=== PATIENT | male | born 1975 | race African-American/Black ===

== ENCOUNTER 2018-10-30 20:32 | Emergency (ER) | payer SELFPAY ==
--- NOTE | 2018-10-31 00:42 | RADIOLOGY REPORT (SQ) ---
EXAM DESCRIPTION: XR KNEE 4 OR MORE VIEWS COMPLETED DATE/TME: 10/31/2018 00:09 CLINICAL HISTORY: 43 years, Male, twisting injury, fall COMPARISON: None. NUMBER OF VIEWS: Four TECHNIQUE: Four views of the right knee LIMITATIONS: None. FINDINGS: There is no acute fracture or dislocation. No large soft tissue swelling. No joint effusion. No radiopaque foreign body. IMPRESSION: No acute fracture or dislocation. copyright 2010 [employer]- All Rights Reserved
[2018-10-31 01:09] VITALS: BP 150/109
[2018-10-31] MEDS ORDERED: IBUPROFEN 600 MG TABLET PO ONE (01:17)
--- NOTE | 2018-10-31 01:17 | ER Document Report ---
HPI - HPI Patient complains to provider of: R knee injury Time Seen by Provider: 10/30/18 23:59 Pain Level: 5 Context: Pleasant 43-year-old male presents to the emergency department with chief complaint of her right knee injury sustained at work this past Friday. Patient states that happened while he was in the shop and known was there to fill out an accident and reports we have to wait till the end of the week to get seen for it. Patient states that he twisted and hurt himself and fell. Patient did not hear a pop. Patient cannot adequately bear weight and he has to walk on his toe. Patient denies any swelling of his entire leg, denies any tingling or numbness of his toes or foot, denies any color changes in his toes or foot. No other complaints Past Medical History - Social History Smoking Status: Never Smoker Family History: Reviewed & Not Pertinent Vertical Provider Document - CONSTITUTIONAL Notes: PHYSICAL EXAMINATION: Reviewed vital signs and charting by RN GENERAL: Alert, interacts well. No acute distress. HEAD: Normocephalic, atraumatic. EYES: Pupils equal and round. Extraocular movements intact. ENT: Oral mucosa moist, tongue midline. NECK: Full range of motion. Trachea midline. LUNGS: Clear to auscultation bilaterally, no wheezes, rales, or rhonchi. No respiratory distress. HEART: Regular rate and rhythm. No murmur ABDOMEN: soft, non-tender. No distention. Bowel sounds present EXTREMITIES: Moves all 4 extremities spontaneously. Edema of the right popliteal fossa with tenderness to palpation, patient can bend his knee but has reduced range of motion, no joint line tenderness to palpation in any of the bony landmarks, anterior drawer's test limited by pain and range of motion, no varus or valgus stress testing pain, swelling of the right lateral malleolus with no ecchymosis and no tenderness to palpation PSYCH: Normal affect, normal mood. SKIN: Warm, dry, normal turgor. No rashes or lesions noted. - INFECTION CONTROL TRAVEL OUTSIDE OF THE [place] IN LAST 30 DAYS: No Course - Re-evaluation Re-evalutation: 10/31/18 01:18 Well-appearing in no acute distress, patient does have some swelling of the popliteal fossa and of the lateral malleolus. 4 view x-ray of the right knee did not show any evidence of fracture or acute dislocation or joint effusion. Patient will be placed in a knee immobilizer and given crutches. Patient given strict return precautions and is stable for discharge. He was given referral to orthopedics. - Vital Signs Vital signs: Temp Pulse Resp BP Pulse Ox 98.2 F 89 18 151/111 H 98 10/30/18 21:05 10/30/18 21:05 10/30/18 21:05 10/30/18 21:05 10/30/18 21:05 Discharge - Discharge Clinical Impression: Right knee injury Qualifiers: Encounter type: initial encounter Qualified Code(s): S89.91XA - Unspecified injury of right lower leg, initial encounter Condition: Good Disposition: HOME, SELF-CARE Instructions: Suspected Internal Knee Injury ([facility]), Knee Immobilizing Splint ([facility]) Additional Instructions: You were seen for an injury to your right knee. You do have some swelling to the back part of your knee which slightly limited my testing of your ACL area nonetheless, I suspect you have an internal injury to your new and have given you referral to orthopedics. I have given you a knee immobilizer splint and you should use to help protect her knee. Please return to the emergency department if you lose feeling in your toes or foot, he get worsening swelling of your leg, you are unable to move your knee at all with maximum effort, he develop high fevers, or you have any other concerning symptoms. Forms: Return to Work Referrals: HAIR FAJARDO JR, [ACTIVE PROVISIONAL STAFF] - 11/02/18
== END 2018-10-31 02:01 | disposition home or self-care (01) ==
LOC: ER 20:32
DX: S89.91XA Unspecified injury of right lower leg, initial encounter (principal); X50.9XXA Other and unspecified overexertion or strenuous movements or postures, initial encounter; W19.XXXA Unspecified fall, initial encounter; Y99.0 Civilian activity done for income or pay
CPT/HCPCS: 73564; L1830; 99283

== ENCOUNTER 2018-11-19 09:09 | Inpatient (IN) | payer BC ==
[2018-11-19] MEDS ORDERED: ASPIRIN 81 MG TABLET, CHEWABLE PO ONE (09:26)
[2018-11-19 09:43] LABS: ABSOLUTE EOSINOPHILS # (AUTO) 0.5 10^3/uL (0.0-0.6); ABSOLUTE LYMPHOCYTES (AUTO) 1.6 10^3/uL (0.5-4.7); ABSOLUTE MONOCYTES (AUTO) 0.5 10^3/uL (0.1-1.4); ABSOLUTE NEUT (AUTO) 2.9 10^3/uL (1.7-8.2); BASOPHILS % (AUTO) 0.2 % (0-2); EOSINOPHILS % (AUTO) 8.2 % (0-6); HEMATOCRIT 45.3 % (37.9-51.0); MEAN CORPUSCULAR HEMOGLOBIN 32.1 pg (27.0-33.4); MEAN CORPUSCULAR HGB CONC 33.1 g/dL (32.0-36.0); MEAN CORPUSCULAR VOLUME 97 fl (80-97); MONOCYTES % (AUTO) 9.7 % (3-13); PLATELET COUNT 200 10^3/uL (150-450); RED BLOOD COUNT 4.68 10^6/uL (4.35-5.55); SEGMENTED NEUTROPHILS % (AUTO) 52.9 % (42-78); TOTAL CELLS COUNTED % (AUTO) 100 %; WHITE BLOOD COUNT 5.5 10^3/uL (4.0-10.5)
[2018-11-19] MEDS ORDERED: NORMAL SALINE 1000 ML 1,000 ML IV ONE (09:59)
[2018-11-19 10:03] LABS: ALBUMIN 4.9 g/dL (3.5-5.0); ALKALINE PHOSPHATASE 91 U/L (38-126); ANION GAP 14 (5-19); ASPARTATE AMINO TRANSFERASE 54 U/L (17-59); BILIRUBIN,DIRECT 0.1 mg/dL (0.0-0.4); BILIRUBIN,TOTAL 1.1 mg/dL (0.2-1.3); BLOOD UREA NITROGEN 9 mg/dL (7-20); CALCIUM 10.1 mg/dL (8.4-10.2); CARBON DIOXIDE 25 mmol/L (22-30); CHLORIDE 97 mmol/L (98-107); CREATINE KINASE 159 U/L (55-170); GLUCOSE 122 mg/dL (75-110); POTASSIUM 4.1 mmol/L (3.6-5.0); TOTAL PROTEIN 9.2 g/dL (6.3-8.2)
--- NOTE | 2018-11-19 10:07 | ER Document Report ---
ED General - General Chief Complaint: Chest Pain Stated Complaint: CHEST PAIN Time Seen by Provider: 11/19/18 09:40 Notes: 43-year-old male presents emergency department complaining of 3 days worth of sharp stabbing chest pain that starts in his epigastrium and radiates up it is associated with dyspnea on exertion and worsening with exertion. Patient states it also increases with cough but does not change with food. Patient admits to having had a cough for "a while" but thought this was just due to working outside. Patient also states that he had a bowel movement today which she thought might help but did not. Denies any history of heart attack in himself or his family, denies any cocaine use. TRAVEL OUTSIDE OF THE [place] IN LAST 30 DAYS: No - Related Data Allergies/Adverse Reactions: No Known Allergies Allergy (Unverified 09/25/14 21:20) Past Medical History - General Information source: Patient - Social History Smoking Status: Current Every Day Smoker Chew tobacco use (# tins/day): No Frequency of alcohol use: Heavy - Daily Drug Abuse: None Family History: Reviewed & Not Pertinent. denies: CAD, CVA Patient has suicidal ideation: No Patient has homicidal ideation: No Renal/ Medical History: Denies: Hx Peritoneal Dialysis Review of Systems - Review of Systems Constitutional: No symptoms reported Cardiovascular: See HPI Respiratory: See HPI Gastrointestinal: See HPI -: Yes All other systems reviewed and negative Physical Exam - Vital signs Vitals: Resp 25 H 11/19/18 09:26 Interpretation: Tachycardic - Notes Notes: GENERAL: Alert, interacts well. Appears uncomfortable. HEAD: Normocephalic, atraumatic EYES: Pupils equal, round and reactive to light, extraocular movements intact. ENT: Oral mucosa moist, tongue midline. NECK: Full range of motion, supple, trachea midline. LUNGS: Clear to auscultation bilaterally, no wheezes, rales or rhonchi, mildly tachypneic laying in bed. HEART: Tachycardic rate and rhythm, no murmurs, gallops, rubs. ABDOMEN: Soft, tender to palpation epigastrically, nondistended, bowel sounds present in all 4 quadrants. EXTREMITIES: Moves all 4 extremities spontaneously, no edema, radial and dorsalis pedis pulses 2/4 bilaterally. No cyanosis. NEUROLOGICAL: Alert and oriented x3, normal speech. PSYCH: Normal mood, normal affect. SKIN: Warm, Dry, normal turgor, no rashes or lesions noted. When he ambulates he becomes quite tachycardic into the 140s, tachypneic into the 30s and hypoxic to 88. Recovers quickly on sitting back down. Course - Re-evaluation Re-evalutation: 11/19/18 11:41 CBC unremarkable, coags slightly prolonged, CMP grossly unremarkable, troponin does have a slight bump at 0.024, CT angiogram of the chest shows large bi lateral distal right and distal left main pulmonary artery emboli extending into the segmental branches, heavy burden of clot, EKG has no evidence of right heart strain. Patient will be started on Xarelto with an initial dose of Lovenox to bridge the 4 hours it takes for Xarelto to be effective. Discussed with Dr. Corrigan who will admit the patient to his service. - Vital Signs Vital signs: Temp Pulse Resp BP Pulse Ox 98.1 F 23 H 160/121 H 99 11/19/18 09:45 11/19/18 11:01 11/19/18 11:01 11/19/18 11:01 - Laboratory Result Diagrams: 11/19/18 09:32 11/19/18 09:32 Laboratory results interpreted by me: 11/19/18 11/19/18 11/19/18 09:32 09:32 09:32 Eos % (Auto) 8.2 H APTT 36.0 H Sodium 135.6 L Chloride 97 L Glucose 122 H Total Protein 9.2 H - EKG Interpretation by Me Additional EKG results interpreted by me: 11/19/18 11:42 EKG shows sinus rhythm at a rate of 98, no ST segment elevations or depressions, no T wave inversions, normal axis, borderline QT interval per my interpretation. Critical Care Note - Critical Care Note Total time excluding time spent on procedures (mins): 35 Discharge - Discharge Clinical Impression: Bilateral pulmonary embolism Condition: Serious Disposition: ADMITTED INPATIENT Admitting Provider: Meenu (Hospitalist) Unit Admitted: [facility]
[2018-11-19 10:14] LABS: CREATINE KINASE MB 0.69 ng/mL (<4.55); TROPONIN I 0.024 ng/mL
--- NOTE | 2018-11-19 11:00 | RADIOLOGY REPORT (SQ) ---
EXAM DESCRIPTION: CTA CHEST COMPLETED DATE/TIME: 11/19/2018 10:35 am REASON FOR STUDY: hypoxia, tachycardia COMPARISON: None. TECHNIQUE: CT scan of the chest performed using helical scanning technique with dynamic intravenous contrast injection. Images reviewed with lung, soft tissue and bone windows. Reconstructed coronal and sagittal MPR images reviewed. Additional 3 dimensional post-processing performed to develop Maximal Intensity Projection images (OR P). All images stored on PACS. All CT scanners at this facility use dose modulation, iterative reconstruction, and/or weight based d osing when appropriate to reduce radiation dose to as low as reasonably achievable (ALARA). [facility]: Dose Right [facility]: CareDose [facility]: Dose Right [facility]: Teradose 4D [facility]: UReserv CONTRAST TYPE AND DOSE: contrast/concentration: Isovue 350.00 mg/ml; Total Contrast Delivered: 52.0 ml; Total Saline Delivered: 59.0 ml Contrast bolus optimized for the pulmonary arteries and thoracic aorta. RENAL FUNCTION: None required. The patient is less than 50 years old. RADIATION DOSE: CT Rad equipment meets quality standard of care and radiation dose reduction techniq ues were employed. CTDIvol: 9.9 - 21.7 mGy. DLP: 867 mGy-cm. . LIMITATIONS: None. FINDINGS: LUNGS AND PLEURA: No masses, infiltrates, or pneumothorax. No pleural effusions or pleura l calcifications. AORTA AND GREAT VESSELS: No thoracic aortic aneurysm or dissection HEART: No pericardial effusion. No significant coronary artery calcifications. PULMONARY ARTERIES: Large bilateral distal right and distal left main pulmonary artery emboli extendi ng into the segmental branches. Heavy burden of clot. Findings discussed with Dr. Pham, 1050 hour s 11/19/2018. HILAR AND MEDIASTINAL STRUCTURES: No identified masses or abnormal nodes. HARDWARE: None in the chest. UPPER ABDOMEN: No significant findings. Limited exam. THYROID AND OTHER SOFT TISSUES: No masses. No adenopathy. BONES: No acute or significant finding. 3D MIPS: Confirm above findings. OTHER: No other significant finding. IMPRESSION: Large bilateral distal right and distal left main pulmonary artery emboli extending into the segmental branches. Heavy burden of clot. Findings discussed with Dr. Pham, 1050 hours 2018. COMMENT: Pertinent findings on the imaging study reported as a CRITICAL RESULT to DARVIN Reeves t10:50 on 11/19/2018. Category of Critical Result: Heavy burden of acute clot in the pulmonary arteries. Quality ID # [id number]: Final reports with documentation of one or more dose reduction techniques (e.g., Au tomated exposure control, adjustment of the mA and/or kV according to patient size, use of iterative reconstruction technique) TECHNICAL DOCUMENTATION: JOB ID: [id number] [employer]- All Rights Reserved Reading location - IP/workstation name: [email or web address]
[2018-11-19 11:06] LABS: INTERNATIONAL RATION (INR) 1.16; PROTHROMBIN TIME 14.8 SEC (11.4-15.4)
[2018-11-19] MEDS ORDERED: ENOXAPARIN SODIUM INJ 80 MG/0.8 ML DISP.SYRIN SUBCUT ONE (11:33)
[2018-11-19] MEDS ORDERED: RIVAROXABAN 10 MG TABLET PO ONE (11:34)
[2018-11-19] MEDS ORDERED: PROMETHAZINE HCL 25 MG TABLET PO PRN (12:03)
[2018-11-19] MEDS ORDERED: ONDANSETRON HCL INJ/PF 4 MG/2 ML SDV IV PRN (12:03)
[2018-11-19] MEDS ORDERED: ACETAMINOPHEN 325 MG TABLET PO PRN (12:03)
[2018-11-19] MEDS ORDERED: LORAZEPAM INJ 2 MG/1 ML VIAL IV PRN (12:25)
[2018-11-19] MEDS ORDERED: MORPHINE SULFATE 10 MG/ML INJ IV PRN (12:25)
--- NOTE | 2018-11-19 12:25 | PDOC H&P ---
History of Present Illness Admission Date/PCP: 11/19/18 12:03 Patient complains of: Chest pains and shortness of breath History of Present Illness: JOURDAN DMUONT is a 43 year old male no past medical history came to the emergency room with complaints of chest pains for the last 3 days associated with shortness of breath. Shortness of breath worsening even by walking 10 feet. Work-up in the emergency room shows bilateral pulmonary embolisms and is tachycardic at rest. Getting short winded with minimal activity. Plan is to put him in IMCU and consultation with Dr. Pino as requested. To start him on Xarelto 15 mg p.o. twice daily after 3 weeks switch to 20 mg daily. pt agreed to stay here for further management. Past Medical History Cardiac Medical History: Reports: None Pulmonary Medical History: Reports: None EENT Medical History: Reports: None Neurological Medical History: Reports: None Endocrine Medical History: Reports: None Renal/ Medical History: Reports: None GI Medical History: Reports: None Musculoskeltal Medical History: Reports: None Skin Medical History: Reports: None Psychiatric Medical History: Reports: None Traumatic Medical History: Reports: None Infectious Medical History: Reports: None Past Surgical History Past Surgical History: Reports: None Social History Information Source: Patient Smoking Status: Current Every Day Smoker Frequency of Alcohol Use: Social Hx Recreational Drug Use: No Hx Prescription Drug Abuse: No - Advance Directive Resuscitation Status: Full Code Family History Family History: Reviewed & Not Pertinent. denies: CAD, CVA Parental Family History Reviewed: Yes - Mother with history of a gastric ulcer. Children Family History Reviewed: Yes Sibling(s) Family History Reviewed.: Yes Medication/Allergy Home Medications: Dicyclomine HCl [Bentyl 20 mg Tablet] 20 mg PO QID #14 tablet 09/25/14 Allergies/Adverse Reactions: No Known Allergies Allergy (Unverified 09/25/14 21:20) Review of Systems Constitutional: ABSENT: fever(s), headache(s), weakness Eyes: ABSENT: visual disturbances Ears: ABSENT: hearing changes Nose, Mouth, and Throat: ABSENT: sore throat Cardiovascular: PRESENT: chest pain, dyspnea on exertion, palpitations. ABSENT: orthropnea Respiratory: ABSENT: dyspnea, hemoptysis Gastrointestinal: ABSENT: abdominal pain, diarrhea, dysphagia, heartburn, hematemesis Genitourinary: ABSENT: dysuria, hematuria Integumentary: ABSENT: rash, wounds Neurological: ABSENT: abnormal gait, abnormal speech, confusion, dizziness, focal weakness, syncope Psychiatric: PRESENT: anxiety Physical Exam Vital Signs: Temp Pulse Resp BP Pulse Ox 98.1 F 23 H 160/121 H 99 11/19/18 09:45 11/19/18 11:01 11/19/18 11:01 11/19/18 11:01 Intake & Output 11/18/18 11/19/18 11/20/18 06:59 06:59 06:59 Intake Total 1000 Balance 1000 Weight 65 kg General appearance: PRESENT: mild distress Head exam: PRESENT: atraumatic Eye exam: PRESENT: PERRLA Mouth exam: PRESENT: moist, tongue midline Teeth exam: PRESENT: poor dentation Neck exam: ABSENT: carotid bruit, JVD, lymphadenopathy, thyromegaly Respiratory exam: PRESENT: decreased breath sounds Cardiovascular exam: PRESENT: RRR, tachycardia. ABSENT: diastolic murmur, rubs, systolic murmur Pulses: PRESENT: normal dorsalis pedis pul GI/Abdominal exam: PRESENT: normal bowel sounds, soft. ABSENT: distended, guarding, mass, organolmegaly, rebound, tenderness Rectal exam: PRESENT: deferred Extremities exam: PRESENT: full ROM. ABSENT: calf tenderness, clubbing, pedal edema Neurological exam: PRESENT: alert, awake, oriented to person, oriented to place, oriented to time, oriented to situation, CN II-XII grossly intact. ABSENT: motor sensory deficit Psychiatric exam: PRESENT: appropriate affect, normal mood. ABSENT: homicidal ideation, suicidal ideation Results Laboratory Results: 11/19/18 09:32 11/19/18 09:32 11/19/18 11/19/18 11/19/18 09:32 09:32 09:32 WBC 5.5 RBC 4.68 Hgb 15.0 Hct 45.3 MCV 97 MCH 32.1 MCHC 33.1 RDW 14.0 Plt Count 200 Seg Neutrophils % 52.9 Sodium 135.6 L Potassium 4.1 Chloride 97 L Carbon Dioxide 25 Anion Gap 14 BUN 9 Creatinine 0.85 Est GFR ( Amer) > 60 Glucose 122 H Calcium 10.1 Total Bilirubin 1.1 AST 54 Alkaline Phosphatase 91 Total Protein 9.2 H Albumin 4.9 Lipase 72.8 11/19/18 11/19/18 09:32 09:32 Creatine Kinase 159 CK-MB (CK-2) 0.69 Troponin I 0.024 Impressions: Chest/Abdomen CTA 11/19/18 09:59 IMPRESSION: Large bilateral distal right and distal left main pulmonary artery emboli extending into the segmental branches. Heavy burden of clot. Findings discussed with Dr. Pham, 1050 hours 11/19/2018. Assessment and Plan - Diagnosis (1) Bilateral pulmonary embolism Is this a current diagnosis for this admission?: Yes (2) Tobacco abuse Is this a current diagnosis for this admission?: No (3) HTN (hypertension) Is this a current diagnosis for this admission?: Yes (4) Tachycardia Is this a current diagnosis for this admission?: Yes - Plan Summary Summary: 1. pulmonary embolism Patient came to the emergency room with complaints of chest pain secondary to bilateral pulmonary embolism. Plan to put him in IMCU consultation with Dr. Pino was requested. To start him on Xarelto 15 mg p.o. twice daily and discontinue Lovenox as per the pharmacy request. GI prophylaxis initiated. Echocardiogram was requested. Placed on oxygen 2 L via nasal cannula. To start him on morphine 2 mg IV every 4 PRN for chest pains and a serial troponins will be requested. To start him on IV Ativan 1 mg every 4 as needed for anxiety. 2.hypertension Patient denies any history of hypertension blood pressure in the emergency room is 160/121. To start him on hydralazine 20 mg IV every 4 as needed for a systolic blood pressure more than 160 and diastolic blood pressure more than 100 and to start him on lisinopril 20 mg p.o. daily. Placed on a cardiac diet. 3.tachycardia patient heart rate is around 130s. Most likely secondary to bilateral pulmonary embolism. To start him on metoprolol 5 mg IV every 6 as needed for heart rate more than 100. 4.Tobacco smoker Sling was provided for more than 20 minutes to placement nicotine patch from today. 4.chest Pain Patient came with complaints of 3 days history of chest pain associated shortness of breath most likely secondary to bilateral pulmonary embolism. Initial troponins are negative. Echocardiogram was requested and serial troponins will be done. - Time Time Spent with patient: 25-34 minutes Medications reviewed and adjusted accordingly: Yes Anticipated discharge: Home
[2018-11-19 13:05] LABS: ARTERIAL BLOOD BASE EXCESS -0.8 mmol/L; ARTERIAL BLOOD H2CO3 0.89 mmol/L (1.05-1.35); ARTERIAL BLOOD HCO3 21.5 mmol/L (20-24); ARTERIAL BLOOD O2 SATURATION 95.1 % (94-98); ARTERIAL BLOOD PCO2 29.5 mmHg (35-45); ARTERIAL BLOOD PH 7.48 (7.35-7.45); ARTERIAL BLOOD PO2 68.8 mmHg (80-100); ARTERIAL BLOOD TOTAL CO2 22.4 mmol/L (23-27)
[2018-11-19 13:06] LABS: URINE AMPHETAMINES SCREEN NEGATIVE; URINE BARBITURATES SCREEN NEGATIVE; URINE BENZODIAZEPINES SCREEN NEGATIVE; URINE COCAINE SCREEN NEGATIVE; URINE MARIJUANA (THC) SCREEN NEGATIVE; URINE METHADONE SCREEN NEGATIVE; URINE PHENCYCLIDINE SCREEN NEGATIVE
[2018-11-19] MEDS: RIVAROXABAN 15 MG TABLET PO SCH ×2 (13:07→21:19)
[2018-11-19 13:16] LABS: ARTERIAL BLOOD FIO2 ROOM AIR
[2018-11-19] MEDS ORDERED: HYDRALAZINE HCL INJ/PF 20 MG/1 ML SDV IV PRN (13:52)
[2018-11-19] MEDS ORDERED: METOPROLOL TARTRATE PF/INJ 5 MG/5 ML SDV IV PRN (13:53)
[2018-11-19 16:14] LABS: CREATINE KINASE MB 1.12 ng/mL (<4.55)
[2018-11-19 16:34] LABS: TROPONIN I 0.165 ng/mL
[2018-11-19] MEDS ORDERED: RIVAROXABAN 10 MG TABLET PO SCH ×2 (18:00)
--- NOTE | 2018-11-19 18:51 | XCELERA REPORT ---
[address] [address] Transthoracic Echocardiogram Report Name: JOURDAN DUMONT Age: 43 yrs Gender: Male : 1975 Patient Status: Inpatient Patient Location: [facility]^A Study Date: 11/19/2018 02:29 PM Height: 69 in Weight: 143 lb BSA: 1.8 m2 Procedure: A complete two-dimensional transthoracic echocardiogram was performed (2D, M-mode, spectral and color flow Doppler). The study was technically adequate with some images being suboptimal in quality. Reason For Study: pilm embolism Ordering Physician: JASWANT MARADIAGA Performed By: Terese Thomas Interpretation Summary The left ventricular ejection fraction is normal. Doppler measurements suggest impaired left ventricular relaxation, which is associated with grade I/IV or mild diastolic dysfunction The left ventricle is grossly normal size. There is normal left ventricular wall thickness. Wall motion cannot be accurately commented on, but no definite regional wall motion abnormalities noted. The right ventricle is mildly dilated. The right ventricular systolic function is borderline reduced. The right atrium is mildly dilated. The left atrial size is normal. There is a trace amount of mitral regurgitation There is no mitral valve stenosis. There is no aortic valve stenosis No aortic regurgitation is present. There is a mild amount of tricuspid regurgitation There is no tricuspid stenosis. The aortic root is not well visualized but is probably normal size. The inferior vena cava appeared normal and decreased > 50% with respiration (RAP 5-10 mmHg) There is no pericardial effusion. MMode/2D Measurements & Calculations RVDd: 2.7 cm LVIDd: 4.3 cm FS: 33.0 % Ao root diam: 3.1 cm IVSd: 0.75 cm LVIDs: 2.9 cm EDV(Teich): 83.2 ml Ao root area: 7.5 cm2 LVPWd: 0.90 cm ESV(Teich): 31.8 ml EF(Teich): 61.8 % Doppler Measurements & Calculations MV E max tai: MV dec slope: Ao V2 max: LV V1 max P.5 cm/sec 278.8 cm/sec2 87.2 cm/sec 2.4 mmHg MV A max tai: MV dec time: 0.13 secAo max P.0 mmHgLV V1 max: 57.5 cm/sec 77.5 cm/sec MV E/A: 0.65 PA V2 max: PI end-d tai: TR max tai: 60.6 cm/sec 89.3 cm/sec 268.0 cm/sec PA max P.5 mmHg TR max P.8 mmHg Left Ventricle The left ventricle is grossly normal size. There is normal left ventricular wall thickness. The left ventricular ejection fraction is normal. Doppler measurements suggest impaired left ventricular relaxation, which is associated with grade I/IV or mild diastolic dysfunction. Wall motion cannot be accurately commented on, but no definite regional wall motion abnormalities noted. Right Ventricle The right ventricle is mildly dilated. There is normal right ventricular wall thickness. The right ventricular systolic function is borderline reduced. Atria The right atrium is mildly dilated. The left atrial size is normal. Interarterial septum not well visualized and not well dopplered. Cannot comment on ASD/PFO presence. Mitral Valve The mitral valve is grossly normal. There is no mitral valve stenosis. There is a trace amount of mitral regurgitation. Aortic Valve The aortic valve is grossly normal. There is no aortic valve stenosis. No aortic regurgitation is present. Tricuspid Valve The tricuspid valve is not well visualized, but is grossly normal. There is no tricuspid stenosis. There is a mild amount of tricuspid regurgitation. Pulmonic Valve The pulmonic valve is not well visualized. Great Vessels The aortic root is not well visualized but is probably normal size. The inferior vena cava appeared normal and decreased > 50% with respiration (RAP 5-10 mmHg). Effusions There is no pericardial effusion. : JASWANT MARADIAGA Shyamal
--- NOTE | 2018-11-19 21:48 | EKG REPORT ---
SEVERITY:- BORDERLINE ECG - SINUS RHYTHM BORDERLINE PROLONGED QT INTERVAL : Confirmed by: Linsey Walden MD 19-Nov-2018 21:47:44
[2018-11-19] MEDS ORDERED: ENOXAPARIN SODIUM INJ 80 MG/0.8 ML DISP.SYRIN SUBCUT SCH (22:00)
[2018-11-19 22:10] LABS: CREATINE KINASE MB 1.16 ng/mL (<4.55); TROPONIN I 0.112 ng/mL
[2018-11-20 04:24] LABS: ABSOLUTE EOSINOPHILS # (AUTO) 0.5 10^3/uL (0.0-0.6); ABSOLUTE LYMPHOCYTES (AUTO) 1.9 10^3/uL (0.5-4.7); ABSOLUTE MONOCYTES (AUTO) 0.5 10^3/uL (0.1-1.4); ABSOLUTE NEUT (AUTO) 2.2 10^3/uL (1.7-8.2); BASOPHILS % (AUTO) 0.3 % (0-2); EOSINOPHILS % (AUTO) 9.3 % (0-6); HEMATOCRIT 41.6 % (37.9-51.0); LYMPHOCYTES % (AUTO) 37.2 % (13-45); MEAN CORPUSCULAR HEMOGLOBIN 32.2 pg (27.0-33.4); MEAN CORPUSCULAR HGB CONC 33.7 g/dL (32.0-36.0); MEAN CORPUSCULAR VOLUME 95 fl (80-97); MONOCYTES % (AUTO) 9.4 % (3-13); PLATELET COUNT 180 10^3/uL (150-450); RED BLOOD COUNT 4.35 10^6/uL (4.35-5.55); RED CELL DISTRIBUTION WIDTH 13.8 % (11.5-14.0); SEGMENTED NEUTROPHILS % (AUTO) 43.8 % (42-78); TOTAL CELLS COUNTED % (AUTO) 100 %
[2018-11-20 04:35] LABS: ALKALINE PHOSPHATASE 72 U/L (38-126); ANION GAP 10 (5-19); ASPARTATE AMINO TRANSFERASE 52 U/L (17-59); BILIRUBIN,DIRECT 0.2 mg/dL (0.0-0.4); BILIRUBIN,TOTAL 0.8 mg/dL (0.2-1.3); BLOOD UREA NITROGEN 8 mg/dL (7-20); CALCIUM 9.3 mg/dL (8.4-10.2); CARBON DIOXIDE 27 mmol/L (22-30); CHLORIDE 99 mmol/L (98-107); GLUCOSE 107 mg/dL (75-110); POTASSIUM 4.3 mmol/L (3.6-5.0); TOTAL PROTEIN 7.5 g/dL (6.3-8.2); TRIGLYCERIDES 113 mg/dL (<150)
[2018-11-20 04:40] LABS: CREATINE KINASE MB 0.95 ng/mL (<4.55); TROPONIN I 0.06 ng/mL
[2018-11-20 04:46] LABS: DIRECT LDL 119 mg/dL (<100)
[2018-11-20] MEDS ORDERED: PANTOPRAZOLE SODIUM 20 MG TABLET.DR PO SCH (06:00)
[2018-11-20 06:10] LABS: INTERNATIONAL RATION (INR) 2.13
[2018-11-20 06:14] LABS: PROTHROMBIN TIME 24.2 SEC (11.4-15.4)
--- NOTE | 2018-11-20 08:10 | PDOC DISCHARGE SUMMARY ---
Impression - Admit/DC Date/PCP Admission Date/Primary Care Provider: 11/19/18 12:03 Discharge Date: 11/20/18 - Assessment Summary: 1. pulmonary embolism Patient came to the emergency room with complaints of chest pain secondary to bilateral pulmonary embolism. Plan to put him in IMCU consultation with Dr. Pino was requested. To start him on Xarelto 15 mg p.o. twice daily and discontinue Lovenox as per the pharmacy request. GI prophylaxis initiated. Echocardiogram was requested. Placed on oxygen 2 L via nasal cannula. To start him on morphine 2 mg IV every 4 PRN for chest pains and a serial troponins will be requested. To start him on IV Ativan 1 mg every 4 as needed for anxiety. 2.hypertension Patient denies any history of hypertension blood pressure in the emergency room is 160/121. To start him on hydralazine 20 mg IV every 4 as needed for a systolic blood pressure more than 160 and diastolic blood pressure more than 100 and to start him on lisinopril 20 mg p.o. daily. Placed on a cardiac diet. 3.tachycardia patient heart rate is around 130s. Most likely secondary to bilateral pulmonary embolism. To start him on metoprolol 5 mg IV every 6 as needed for heart rate more than 100. 4.Tobacco smoker Sling was provided for more than 20 minutes to placement nicotine patch from today. 4.chest Pain Patient came with complaints of 3 days history of chest pain associated shortness of breath most likely secondary to bilateral pulmonary embolism. Initial troponins are negative. Echocardiogram was requested and serial troponins will be done. - Additional Information Resuscitation Status: Full Code Discharge Diet: As Tolerated Discharge Activity: Activity As Tolerated Referrals: CHE JONES MD [ACTIVE STAFF] - Prescriptions: Oxycodone HCl/Acetaminophen [Percocet 5-325 mg Tablet] 1 tab PO ASDIR PRN #25 tab PRN Reason: Lisinopril [Prinivil 10 mg Tablet] 20 mg PO DAILY #30 tablet Rivaroxaban [Xarelto] 20 mg PO DAILY #30 tablet Home Medications: Lisinopril [Prinivil 10 mg Tablet] 20 mg PO DAILY #30 tablet 11/20/18 Oxycodone HCl/Acetaminophen [Percocet 5-325 mg Tablet] 1 tab PO ASDIR PRN #25 tab 11/20/18 Rivaroxaban [Xarelto] 20 mg PO DAILY #30 tablet 11/20/18 History of Present Illiness History of Present Illness: JOURDAN DUMONT is a 43 year old male with no past medical history who presented to emergency room with complaints of chest pain for last 3 days associated with shortness of breath. Hospital Course Hospital Course: Patient presented to ER with shortness of breath and chest pain it was persistent for the last 3 days. Patient states that his shortness of breath worsened even by walking 10 feet. Work-up in the emergency room showed bilateral pulmonary embolisms and a tachycardia at rest. Patient was started on Xarelto 15 mg p.o. twice daily and then after 3 weeks we will switch him to 20 mg p.o. daily. At this time patient has improved sufficiently return home he will follow-up with Dr. Pino within 1 week. I have given patient a prescription for Xarelto 20 mg p.o. daily after he finishes a Dosepak sent over by Dr. Pino's office. Also gave patient Percocet 5/325 mg 1 every 4 hours as needed for pain 25. Physical Exam Vital Signs: Temp Pulse Resp BP Pulse Ox 98.3 F 96 15 127/98 H 95 11/20/18 03:31 11/20/18 07:00 11/20/18 03:31 11/20/18 03:31 11/20/18 03:31 Intake & Output 11/19/18 11/20/18 11/21/18 06:59 06:59 06:59 Intake Total 1660 Balance 1660 Weight 66.9 kg General appearance: PRESENT: no acute distress, well-developed, well-nourished Head exam: PRESENT: atraumatic, normocephalic Eye exam: PRESENT: conjunctiva pink, EOMI, PERRLA. ABSENT: scleral icterus Ear exam: PRESENT: normal external ear exam Mouth exam: PRESENT: moist, tongue midline Neck exam: ABSENT: carotid bruit, JVD, lymphadenopathy, thyromegaly Respiratory exam: PRESENT: clear to auscultation jada. ABSENT: rales, rhonchi, wheezes Cardiovascular exam: PRESENT: RRR. ABSENT: diastolic murmur, rubs, systolic murmur Pulses: PRESENT: normal dorsalis pedis pul Vascular exam: PRESENT: normal capillary refill GI/Abdominal exam: PRESENT: normal bowel sounds, soft. ABSENT: distended, guarding, mass, organolmegaly, rebound, tenderness Rectal exam: PRESENT: deferred Extremities exam: PRESENT: full ROM. ABSENT: calf tenderness, clubbing, pedal edema Neurological exam: PRESENT: alert, awake, oriented to person, oriented to place, oriented to time, oriented to situation, CN II-XII grossly intact. ABSENT: motor sensory deficit Psychiatric exam: PRESENT: appropriate affect, normal mood. ABSENT: homicidal ideation, suicidal ideation Skin exam: PRESENT: dry, intact, warm. ABSENT: cyanosis, rash Results Laboratory Results: WBC 5.0 10^3/uL (4.0-10.5) 11/20/18 04:02 RBC 4.35 10^6/uL (4.35-5.55) 11/20/18 04:02 Hgb 14.0 g/dL (13.5-17.0) 11/20/18 04:02 Hct 41.6 % (37.9-51.0) 11/20/18 04:02 MCV 95 fl (80-97) 11/20/18 04:02 MCH 32.2 pg (27.0-33.4) 11/20/18 04:02 MCHC 33.7 g/dL (32.0-36.0) 11/20/18 04:02 RDW 13.8 % (11.5-14.0) 11/20/18 04:02 Plt Count 180 10^3/uL (150-450) 11/20/18 04:02 Lymph % (Auto) 37.2 % (13-45) 11/20/18 04:02 [place] % (Auto) 9.4 % (3-13) 11/20/18 04:02 Eos % (Auto) 9.3 % (0-6) H 11/20/18 04:02 Baso % (Auto) 0.3 % (0-2) 11/20/18 04:02 Absolute Neuts (auto) 2.2 10^3/uL (1.7-8.2) 11/20/18 04:02 Absolute Lymphs (auto) 1.9 10^3/uL (0.5-4.7) 11/20/18 04:02 Absolute Monos (auto) 0.5 10^3/uL (0.1-1.4) 11/20/18 04:02 Absolute Eos (auto) 0.5 10^3/uL (0.0-0.6) 11/20/18 04:02 Absolute Basos (auto) 0.0 10^3/uL (0.0-0.2) 11/20/18 04:02 Seg Neutrophils % 43.8 % (42-78) 11/20/18 04:02 PT 24.2 SEC (11.4-15.4) H D 11/20/18 05:36 INR 2.13 11/20/18 05:36 INR (Anticoag Therapy) Cancelled 11/20/18 04:02 APTT 36.0 SEC (23.5-35.8) H 11/19/18 09:32 Carbonic Acid 0.89 mmol/L (1.05-1.35) L 11/19/18 12:55 HCO3/H2CO3 Ratio 24:1 11/19/18 12:55 ABG pH 7.48 (7.35-7.45) H 11/19/18 12:55 ABG pCO2 29.5 mmHg (35-45) L 11/19/18 12:55 ABG pO2 68.8 mmHg (80-100) L 11/19/18 12:55 ABG HCO3 21.5 mmol/L (20-24) 11/19/18 12:55 ABG Total CO2 22.4 mmol/L (23-27) L 11/19/18 12:55 ABG O2 Saturation 95.1 % (94-98) 11/19/18 12:55 ABG Base Excess -0.8 mmol/L 11/19/18 12:55 FiO2 ROOM AIR 11/19/18 12:55 Sodium 136.2 mmol/L (137-145) L 11/20/18 04:02 Potassium 4.3 mmol/L (3.6-5.0) 11/20/18 04:02 Chloride 99 mmol/L (98-107) 11/20/18 04:02 Carbon Dioxide 27 mmol/L (22-30) 11/20/18 04:02 Anion Gap 10 (5-19) 11/20/18 04:02 BUN 8 mg/dL (7-20) 11/20/18 04:02 Creatinine 1.02 mg/dL (0.52-1.25) 11/20/18 04:02 Est GFR ( Amer) > 60 (>60) 11/20/18 04:02 Est GFR (MDRD) Non-Af > 60 (>60) 11/20/18 04:02 Glucose 107 mg/dL (75-110) 11/20/18 04:02 Hemoglobin A1c % 5.5 % (4.7-6.0) 11/20/18 04:02 Calcium 9.3 mg/dL (8.4-10.2) 11/20/18 04:02 Magnesium 1.8 mg/dL (1.6-2.3) 11/20/18 04:02 Total Bilirubin 0.8 mg/dL (0.2-1.3) 11/20/18 04:02 Direct Bilirubin 0.2 mg/dL (0.0-0.4) 11/20/18 04:02 Neonat Total Bilirubin Not Reportable 11/20/18 04:02 Neonat Direct Bilirubin Not Reportable 11/20/18 04:02 Neonat Indirect Bili Not Reportable 11/20/18 04:02 AST 52 U/L (17-59) 11/20/18 04:02 ALT 40 U/L (<50) 11/20/18 04:02 Alkaline Phosphatase 72 U/L (38-126) 11/20/18 04:02 Creatine Kinase 100 U/L (55-170) 11/20/18 04:02 CK-MB (CK-2) 0.95 ng/mL (<4.55) 11/20/18 04:02 Troponin I 0.060 ng/mL 11/20/18 04:02 NT-Pro-B Natriuret Pep 714 pg/mL (<125) H 11/20/18 04:02 Total Protein 7.5 g/dL (6.3-8.2) 11/20/18 04:02 Albumin 4.0 g/dL (3.5-5.0) 11/20/18 04:02 Triglycerides 113 mg/dL (<150) 11/20/18 04:02 Cholesterol 217.60 mg/dL (0-200) H 11/20/18 04:02 LDL Cholesterol Direct 119 mg/dL (<100) H 11/20/18 04:02 VLDL Cholesterol 23.0 mg/dL (10-31) 11/20/18 04:02 HDL Cholesterol 65 mg/dL (>40) 11/20/18 04:02 Lipase 72.8 U/L (23-300) 11/19/18 09:32 TSH 4.46 uIU/mL (0.47-4.68) 11/20/18 04:02 Urine Opiates Screen NEGATIVE 11/19/18 11:20 Urine Methadone Screen NEGATIVE 11/19/18 11:20 Ur Barbiturates Screen NEGATIVE 11/19/18 11:20 Ur Phencyclidine Scrn NEGATIVE 11/19/18 11:20 Ur Amphetamines Screen NEGATIVE 11/19/18 11:20 U Benzodiazepines Scrn NEGATIVE 11/19/18 11:20 Urine Cocaine Screen NEGATIVE 11/19/18 11:20 U Marijuana (THC) Screen NEGATIVE 11/19/18 11:20 11/19/18 11/19/18 11/19/18 09:32 15:30 21:32 CK-MB (CK-2) 0.69 1.12 1.16 Troponin I 0.024 0.165 0.112 NT-Pro-B Natriuret Pep 11/20/18 11/20/18 04:02 04:02 CK-MB (CK-2) 0.95 Troponin I 0.060 NT-Pro-B Natriuret Pep 714 H Impressions: Chest/Abdomen CTA 11/19/18 09:59 IMPRESSION: Large bilateral distal right and distal left main pulmonary artery emboli extending into the segmental branches. Heavy burden of clot. Findings discussed with Dr. Pham, 1050 hours 11/19/2018. Plan Time Spent: Greater than 30 Minutes Stroke Is this a Stroke Patient?: No Acute Heart Failure - Is this a Heart Failure Patient?: No
[2018-11-20 08:46] LABS: APPEARANCE,URINE CLEAR; BILIRUBIN,URINE NEGATIVE (NEGATIVE); COLOR,URINE YELLOW; GLUCOSE, URINE NEGATIVE (NEGATIVE); KETONES,URINE NEGATIVE (NEGATIVE); LEUKOCYTE ESTERASE,URINE NEGATIVE (NEGATIVE); NITRITE,URINE NEGATIVE (NEGATIVE); PROTEIN,URINE NEGATIVE (NEGATIVE); UROBILINOGEN,URINE NEGATIVE mg/dL (<2.0)
[2018-11-20] MEDS: RIVAROXABAN 15 MG TABLET PO SCH (09:52)
[2018-11-20] MEDS ORDERED: LISINOPRIL 10 MG TABLET PO SCH (10:00)
[2018-11-20] MEDS ORDERED: NICOTINE 21 MG/24 HR PATCH.TD24 TD SCH (10:00)
[2018-11-20 11:30] VITALS: BP 138/96
--- NOTE | 2018-11-20 11:36 | PDOC CONSULTATION ---
Consultation Consult Date: 11/20/18 Provider Consulted: CHE JONES Consult reason:: Hematology/Oncology consultation was requested for patient with new bilateral pulmonary emboli History of Present Illness Admission Date/PCP: 11/19/18 12:03 History of Present Illness: JOURDAN DUMONT is a 43 year old male with no significant past medical history who presented to the ED with substernal chest pain and dyspnea on exertion. He states that 3 weeks ago, he tore a tendon in his right leg and has been out of work and sitting around the house. He developed what he thought was a chest cold a few days ago, but this progressed and dyspnea was more pronounced. He has no prior history of blood clots. He denies smoking or any recent steroid use. He was found to have large amount of pulmonary emboli bilaterally. He has been started on Xarelto. He is still having some dyspnea on exertion. Past Medical History Cardiac Medical History: Reports: None Pulmonary Medical History: Reports: None EENT Medical History: Reports: None Neurological Medical History: Reports: None Endocrine Medical History: Reports: None Renal/ Medical History: Reports: None GI Medical History: Reports: None Musculoskeltal Medical History: Reports: None Skin Medical History: Reports: None Psychiatric Medical History: Reports: None Traumatic Medical History: Reports: None Infectious Medical History: Reports: None Past Surgical History Past Surgical History: Reports: None Social History Information Source: Patient Occupation: [employer] Lives with: Family Smoking Status: Never Smoker Electronic Cigarette use?: No Frequency of Alcohol Use: Heavy Hx Recreational Drug Use: No Hx Prescription Drug Abuse: No Past Social History Note: He is single and has 2 children. No pets. Lives with his mother when not traveling for work. - Advance Directive Resuscitation Status: Full Code Family History Family History: denies: CAD, CVA Parental Family History Reviewed: Yes - Mother with ulcers. Father healthy Children Family History Reviewed: Yes Sibling(s) Family History Reviewed.: Yes Medication/Allergy Home Medications: Lisinopril [Prinivil 10 mg Tablet] 20 mg PO DAILY #30 tablet 11/20/18 Oxycodone HCl/Acetaminophen [Percocet 5-325 mg Tablet] 1 tab PO ASDIR PRN #25 tab 11/20/18 Rivaroxaban [Xarelto] 20 mg PO DAILY #30 tablet 11/20/18 Allergies/Adverse Reactions: dairy Allergy (Uncoded 11/19/18 15:24) onions Allergy (Uncoded 11/19/18 15:23) pork Allergy (Uncoded 11/19/18 15:23) Review of Systems Constitutional: ABSENT: fever(s), headache(s) Eyes: ABSENT: visual disturbances Ears: ABSENT: hearing changes Nose, Mouth, and Throat: ABSENT: sore throat Cardiovascular: PRESENT: chest pain, dyspnea on exertion Respiratory: PRESENT: dyspnea Gastrointestinal: ABSENT: constipation, nausea Genitourinary: ABSENT: dysuria Musculoskeletal: PRESENT: as per HPI Integumentary: ABSENT: rash Neurological: ABSENT: dizziness Hematologic/Lymphatic: ABSENT: easy bleeding Physical Exam Vital Signs: Temp Pulse Resp BP Pulse Ox 97.8 F 102 H 18 133/93 H 93 11/20/18 08:08 11/20/18 08:08 11/20/18 08:08 11/20/18 08:08 11/20/18 08:08 Intake & Output 11/19/18 11/20/18 11/21/18 06:59 06:59 06:59 Intake Total 1660 Balance 1660 Weight 66.9 kg General appearance: PRESENT: no acute distress, well-developed, well-nourished Exam: 43 year old male. Head exam: PRESENT: atraumatic, normocephalic Eye exam: PRESENT: EOMI Mouth exam: PRESENT: tongue midline Neck exam: ABSENT: lymphadenopathy, tenderness Respiratory exam: PRESENT: clear to auscultation jada, unlabored Cardiovascular exam: PRESENT: RRR. ABSENT: systolic murmur GI/Abdominal exam: PRESENT: soft. ABSENT: tenderness Extremities exam: PRESENT: other - SCDs in place.. ABSENT: pedal edema Neurological exam: PRESENT: alert, awake, oriented to person, oriented to place, oriented to time, oriented to situation Psychiatric exam: PRESENT: appropriate affect Skin exam: PRESENT: normal color Results Laboratory Results: 11/20/18 04:02 11/20/18 04:02 11/19/18 11/20/18 11/20/18 12:55 04:02 04:02 WBC 5.0 RBC 4.35 Hgb 14.0 Hct 41.6 MCV 95 MCH 32.2 MCHC 33.7 RDW 13.8 Plt Count 180 Seg Neutrophils % 43.8 Carbonic Acid 0.89 L HCO3/H2CO3 Ratio 24:1 ABG pH 7.48 H ABG pCO2 29.5 L ABG pO2 68.8 L ABG HCO3 21.5 ABG O2 Saturation 95.1 ABG Base Excess -0.8 FiO2 ROOM AIR Sodium 136.2 L Potassium 4.3 Chloride 99 Carbon Dioxide 27 Anion Gap 10 BUN 8 Creatinine 1.02 Est GFR ( Amer) > 60 Glucose 107 Calcium 9.3 Magnesium 1.8 Total Bilirubin 0.8 AST 52 Alkaline Phosphatase 72 Total Protein 7.5 Albumin 4.0 Triglycerides 113 Cholesterol 217.60 H LDL Cholesterol Direct 119 H VLDL Cholesterol 23.0 HDL Cholesterol 65 TSH Urine Color Urine Appearance Urine pH Ur Specific [place] Urine Protein Urine Glucose (UA) Urine Ketones Urine Blood Urine Nitrite Ur Leukocyte Esterase Urine WBC (Auto) Urine RBC (Auto) 11/20/18 11/20/18 04:02 08:28 WBC RBC Hgb Hct MCV MCH MCHC RDW Plt Count Seg Neutrophils % Carbonic Acid HCO3/H2CO3 Ratio ABG pH ABG pCO2 ABG pO2 ABG HCO3 ABG O2 Saturation ABG Base Excess FiO2 Sodium Potassium Chloride Carbon Dioxide Anion Gap BUN Creatinine Est GFR ( Amer) Glucose Calcium Magnesium Total Bilirubin AST Alkaline Phosphatase Total Protein Albumin Triglycerides Cholesterol LDL Cholesterol Direct VLDL Cholesterol HDL Cholesterol TSH 4.46 Urine Color YELLOW Urine Appearance CLEAR Urine pH 6.0 Ur Specific [place] 1.020 Urine Protein NEGATIVE Urine Glucose (UA) NEGATIVE Urine Ketones NEGATIVE Urine Blood MODERATE H Urine Nitrite NEGATIVE Ur Leukocyte Esterase NEGATIVE Urine WBC (Auto) 1 Urine RBC (Auto) 5 11/19/18 11/19/18 11/19/18 09:32 09:32 15:30 Creatine Kinase 159 144 CK-MB (CK-2) 0.69 Troponin I 0.024 NT-Pro-B Natriuret Pep 11/19/18 11/19/18 11/19/18 15:30 21:32 21:32 Creatine Kinase 119 CK-MB (CK-2) 1.12 1.16 Troponin I 0.165 0.112 NT-Pro-B Natriuret Pep 11/20/18 11/20/18 11/20/18 04:02 04:02 04:02 Creatine Kinase 100 CK-MB (CK-2) 0.95 Troponin I 0.060 NT-Pro-B Natriuret Pep 714 H Impressions: Chest/Abdomen CTA 11/19/18 09:59 IMPRESSION: Large bilateral distal right and distal left main pulmonary artery emboli extending into the segmental branches. Heavy burden of clot. Findings discussed with Dr. Pham, 1050 hours 11/19/2018. Status: Image reviewed by me Assessment & Plan - Diagnosis (1) Bilateral pulmonary embolism Is this a current diagnosis for this admission?: Yes Plan: I discussed the diagnosis in detail with the patient. This may be due to the inactivity after leg injury. He will continue Xarelto 15 mg BID x 3 weeks, then change to 20 mg daily. He will stop by my office to picker / packer a free started pack for the first 30 days and I will make sure he is enrolled in the free drug program with Xarelto. I will see him again in the office in about 2 weeks. - Plan Summary Plan Summary: Patient was discussed with Hospitalist. All questions were answered.
== END 2018-11-20 13:37 | disposition home or self-care (01) | DRG 176 ==
LOC: ER 09:09 → EH 12:03 → 3N 13:40
PROVIDERS: ADMIT Internal Medicine; ATTEND Internal Medicine
DX: I26.99 Other pulmonary embolism without acute cor pulmonale (principal); R07.9 Chest pain, unspecified; I10 Essential (primary) hypertension; F41.9 Anxiety disorder, unspecified; F17.210 Nicotine dependence, cigarettes, uncomplicated
CPT/HCPCS: 36415; 71275; 80053; 80061; 80307; 81001; 81240; 81241; 82550; 82553; 82803; 83036; 83690; 83735; 83880; 84443; 84484; 85025; 85610; 85730; 93005; 93010; 93306; 96360; 99291; J1650; J2270; J3490; J7030

== ENCOUNTER 2019-04-16 07:02 | Day surgery (SDC) | payer BC ==
[2019-04-16] MEDS ORDERED: LIDOCAINE 2% INJ-PF (20 MG/ML) 10 ML AMPUL ONE (07:23)
[2019-04-16] MEDS ORDERED: PROPOFOL INJ 200 MG/20 ML VIAL IV ONE (07:24)
[2019-04-16 08:52] VITALS: BP 152/103
--- NOTE | 2019-04-16 12:32 | Operative Report ---
Operative Report DATE OF SURGERY: 04/16/19 Operative Report: Risk, benefits and alternatives of the procedure including risk of bleeding, perforation requiring surgery have been explained to the patient in detail and informed consent has been obtained. The patient was placed in a left, lateral decubital position. Timeout was called. Propofol medication is administered. Rectal examination is done which did not reveal any masses, tears or fissures. An Olympus videoscope was introduced into the patient's rectum. Scope was then carefully advanced all the way to the cecum. The cecum was identified by the usual anatomical landmarks including the ileocecal valve as well as the appendiceal office. Photodocumentation is obtained. Scope was then sequentially pulled back via the various segments of the colon including the ascending colon, back flexure, transverse colon, splenic flexure, descending colon and finally into the rectosigmoid portions of the colon. Retroflexion maneuvers performed. The risks benefits and alternatives of the procedure explained to the patient in detail and informed consent is obtained.A GIF Olympus video scope was inserted into the patient's mouth and hypopharynx, the esophagus is identified intubated and insufflated, the scope was then advanced through the esophagus stomach and duodenum, retroflexion maneuver is done the esophagus stomach and first and second portions of the duodenum examined PREOPERATIVE DIAGNOSIS: Colorectal cancer screening. Blood in stool POSTOPERATIVE DIAGNOSIS: Nodular gastritis. Small biopsy obtained. Normal screening colonoscopy OPERATION: Diagnostic colonoscopy. EGD with biopsy SURGEON: ANGELICA NARANJO ANESTHESIA: LMAC TISSUE REMOVED OR ALTERED: As noted above COMPLICATIONS: None. ESTIMATED BLOOD LOSS: None. INTRAOPERATIVE FINDINGS: As noted above. PROCEDURE: Patient tolerated the procedure well. No immediate postprocedure complications are noted. Patient is discharged in good condition. Discharge date 04/16/2019. Discharge diet: Regular. Discharge activity: Regular. 2 to 3-week follow-up to discuss findings. Patient is instructed to call the office or proceed to the emergency room should there be any further problems or questions. 5-year surveillance colonoscopy. We will wait on the pathology. Family history of colorectal cancer.
== END 2019-04-16 08:59 | disposition home or self-care (01) ==
LOC: END 07:02
PROVIDERS: ATTEND Internal Medicine Gastroenterology
DX: K29.50 Unspecified chronic gastritis without bleeding (principal); K92.1 Melena; Z80.0 Family history of malignant neoplasm of digestive organs
CPT/HCPCS: 43239; 45378; 88305 ×2; 00813; J2704; J3490; 45380; 813

== ENCOUNTER → 2019-10-27 | Outpatient (CLI) | payer BC ==
--- NOTE | 2019-10-27 14:44 | RADIOLOGY REPORT (SQ) ---
EXAM DESCRIPTION: MRI IAC WWO IMAGES COMPLETED DATE/TIME: 10/27/2019 9:59 am REASON FOR STUDY: H90.5 UNSPECIFIED SENSORINEURAL HEARING LOSS H90.5 UNSPECIFIED SENSORINEURAL HEAR ING LOSS COMPARISON: None. TECHNIQUE: Multiplanar imaging includes noncontrasted T1, T2, FLAIR, diffusion with ADC map and post gadolinium contrast T1 sequences. Thin sections through the internal auditory canals. Images stored on PACS. CONTRAST TYPE AND DOSE: 15 mL Prohance. RENAL FUNCTION: Not indicated. ACR Type II contrast agent associated with few, if any, unconfounded cases of NSF LIMITATIONS: None. FINDINGS: ANATOMY: No anomalies. Normal vascular flow voids. Pituitary fossa normal. CSF SPACES: Normal in size and contour. No hemorrhage. CEREBRUM: Sulci and gyri normal in size and contour. Normal white matter signal on FLAIR imaging. No evidence of hemorrhage, mass, or extraaxial fluid collection. No abnormal enhancement post contrast. POSTERIOR FOSSA: No signal alteration. No hemorrhage. No edema, masses, or mass effect. Internal sienna tory canals, cerebellopontine angles, mastoids normal. Normal vestibular aqueducts. No enhancing le sions. No abnormal enhancement post contrast. DIFFUSION IMAGING: Negative for acute or subacute infarction. ORBITS: No masses. Globes normal. PARANASAL SINUSES: No fluid levels. OTHER: No other significant finding. IMPRESSION: Normal brain. Normal IAC's. EVIDENCE OF ACUTE STROKE: NO. TECHNICAL DOCUMENTATION: JOB ID: [id number] [employer]- All Rights Reserved Reading location - IP/workstation name: [email or web address]
== END ==
LOC: RAD 09:03
PROVIDERS: ATTEND Otolaryngology
DX: H90.5 Unspecified sensorineural hearing loss (principal)
CPT/HCPCS: 70553; A9576